=== PATIENT | female | born 1990 | race Asian ===

== ENCOUNTER 2019-03-21 11:18 | Outpatient (CLI) | payer BC ==
[~2019-03-21] VITALS: Ht 162.6 cm; Wt 72.7 kg
--- NOTE | 2019-03-21 11:28 | NUR ---
[id number] 38.[address] LORENZANA ABMULATORY TO LR 6 WITH COMPLAINTS OF VAGINAL BLEEDING. REPORTS GOOD FM, DENIES CONTRACTIONS. 1135-PLACED ON EFM, REACTIVE FHR, VSS. SVE /-3, EXAM GLOVE WITH BROWN DISHCARGE NOTED. ASSESSMENT COMPLETE. UPDATED ON PLAN OF CARE. 1208- ON UNIT. REVIEWS STRIP. ORDERS TO DISCHARGE PATIENT HOME. 1225-REVIEWED DISCHARGE INSTRUCTIONS WITH PATIENT. PATIENT VERBALIZED UNDERSTANDING. DENIES QUESTIONS. 1228-AMBULATORY OFF UNIT WITH SPOUSE.
[2019-03-21 11:41] VITALS: BP 115/61; PULSE 70; TEMP 98
[2019-03-21] MEDS ORDERED: PRENATAL (11:52)
[2019-03-21 12:00] VITALS: BP 115/61; PULSE 70
== END 2019-03-21 12:28 | disposition home or self-care (01) ==
LOC: LDRO 11:18 → LDR 11:28 → LDRO 12:28
DX: O26.853 Spotting complicating pregnancy, third trimester (principal); Z3A.38 38 weeks gestation of pregnancy
CPT/HCPCS: OP

== ENCOUNTER 2019-03-22 07:54 | Inpatient (IN) | payer BC ==
[2019-03-22] VITALS (27 sets, daily range): BP systolic 104–148; BP diastolic 51–83; PULSE 70–123; TEMP 97.5–99.1
[~2019-03-22] VITALS: Ht 162.6 cm; Wt 72.7 kg
[~2019-03-22 07:54] MED LIST: PRENATAL
--- NOTE | 2019-03-22 08:10 | NUR ---
Patient ambulatory to LR6 with spouse, changed into gown, FHR/C[place]ell monitors placed and explained. Patient states she was here yesterday for bloody show and was dilated to 1, she states she is monica regular and still having bloody show. 0813: SVE-4/-2 with bloody show noted. Plan of care discussed.
--- NOTE | 2019-03-22 09:15 | NUR ---
SVE-5/80/-2 and bloody show. Patient updated that she will be admitted and plan of care discussed. 0930: IV started and blood obtained and to lab. Consents gone over and signed and packet given. 0945: Patient off monitor to ambulate.
[2019-03-22 10:40] LABS: BASO % 0.3 % (0.0-2.0); EOS # 0.1 (0.0-0.7); EOS % 0.5 % (0-4.0); GRAN # 10.3 (1.4-6.5); GRAN % 81.8 % (42.2-75.2); HEMATOCRIT 40.6 % (37.0-47.0); HEMOGLOBIN 13.7 g/dl (12.5-16.0); LYMPH # 1.3 (1.2-3.4); LYMPH % 10.2 % (20.0-51.0); MEAN CELL VOLUME 94 fl (80.0-100.0); MEAN CORPUSCULAR HEMOGLOBIN 32 pg (27.0-31.0); MEAN CORPUSCULAR HGB CONC 34 g/dl (33.0-37.0); MEAN PLATELET VOLUME 11.5 fl (7.4-10.4); MONO # 0.8 (0.1-0.6); MONO % 6.2 % (1.7-9.3); PLATELET COUNT 130 K/mm3 (130-400); RED BLOOD COUNT 4.31 M/mm3 (4.10-5.30); REDCELL DISTRIBUTION WIDTH-CV 14.1 % (11.5-14.5)
--- NOTE | 2019-03-22 11:15 | NUR ---
EFMs off. Patient up to ambulate in room and hallway. at bedside. Report from Shaka CORONA to assume care at this time.
--- NOTE | 2019-03-22 12:00 | NUR ---
EFMs on, VS taken. Patient reports pain is more intense with contractions. Plan of care discussed, questions answered. at bedside. Call light within reach.
--- NOTE | 2019-03-22 12:35 | NUR ---
EFMs off. Patient up to bathroom and to ambulate around room.
--- NOTE | 2019-03-22 12:45 | NUR ---
to bedside. Plan of care discussed, questions answered. AROM at 1247, small amount of clear fluid and bloody show noted. SVE 6-7/100/-1. Patient denies need for pain intervention at this time. supportive at bedside. Call light within reach.
--- NOTE | 2019-03-22 14:55 | NUR ---
Patient comfortable with epidural. Rodriguez catheter placed. SVE 9/100/0, bloody show noted on exam glove.
--- NOTE | 2019-03-22 15:10 | NUR ---
Patient calls out reporting urge to push. KADEN AL/+1.
--- NOTE | 2019-03-22 15:30 | NUR ---
Patient calls out reporting urge to push. SVE Complete/+2.
--- NOTE | 2019-03-22 17:45 | NUR ---
1540: Initial push. This RN remains at bedside during pushing. 1639: notified of pushing progress. Requested at bedside for delivery. 1645: at bedside for delivery. 1718: Spontaneous vaginal delivery of viable male over 2nd degree perineal and right labial lacerations assisted by . care assumed by Mary CORONA at this time. 1722: Spontaneous delivery of placenta assisted by . Pitocin infusing at 333ml/hr. Fundus firming with massage, moderate lochia noted. 1724: Red Omari catheter used to drain bladder by . Fundus firm, small amount lochia noted. 1725: Methergine 0.2mg IM given. 1726: 2-[address]-1 and 3-0 Chromic SH used to repair lacerations by . Fundus firm, lochia WNL. 1745: Fundis firm, lochia WNL. Ice pack in place. Recovery period started.
--- NOTE | 2019-03-22 18:15 | NUR ---
Report to Aylin RN to assume care of patient at this time.
--- NOTE | 2019-03-22 21:00 | NUR ---
Pt able to lift and hold each leg off of bed for 5 seconds. Pt positioned to sitting on edge of bed. Epidural catheter removed. Tip smooth, blue, and intact. Pt tolerated procedure well. Pt able to ambulated to bathroom with standby assistance. Pt able to void 900 mL without diffuculty. Pericare explained and provided. New gown own. Mesh panties and peripad on. Pt transferred to room 216 by wheelchair with belongings.
[2019-03-23 01:15] VITALS: BP 127/75; PULSE 81; TEMP 97.7
[2019-03-23 05:15] VITALS: BP 98/59; PULSE 77; TEMP 98.4
--- NOTE | 2019-03-23 10:45 | NUR ---
Initial visit; Parents thanked for offering congratulations for the of their son. thanked family for choosing [facility].
[2019-03-23 15:31] VITALS: BP 114/62; PULSE 76; TEMP 97.8
[2019-03-23 22:00] VITALS: BP 121/73; PULSE 80
[2019-03-24 07:09] VITALS: BP 116/78; PULSE 76; TEMP 98.1
[2019-03-24] MEDS ORDERED: IBU600 MG PO (08:59)
== END 2019-03-24 14:47 | disposition home or self-care (01) | DRG 807 ==
LOC: LDRO 07:54 → LDR 09:22 → OB 21:00
PROVIDERS: Obstetrics & Gynecology; ADMIT Student in an Organized Health Care Education/Training Program
PROC: 10E0XZZ Delivery of Products of Conception, External Approach (ICD-10-PCS; principal; 2019-03-22)
PROC: 0KQM0ZZ Repair Perineum Muscle, Open Approach (ICD-10-PCS; 2019-03-22)
DX: O70.1 Second degree perineal laceration during delivery (principal); Z37.0 Single live birth; O62.2 Other uterine inertia; Z3A.38 38 weeks gestation of pregnancy
CPT/HCPCS: J2210; J2590; J7120